=== PATIENT | female | born 1945 | race Caucasian/White ===

== ENCOUNTER 2016-06-06 11:42 | Outpatient (CLI) | payer MEDICARE, OTHER ==
[2016-06-06] MEDS ORDERED: IOPAMIDOL-300 50 ML VIAL PO ONE (14:04)
[2016-06-06] MEDS ORDERED: IOPAMIDOL-300 100 ML VIAL IVP ONE ×2 (14:04)
== END 2016-06-06 11:43 | disposition home or self-care (01) ==
DX: K57.32 Diverticulitis of large intestine without perforation or abscess without bleeding (principal)
CPT/HCPCS: 36415; 74177; 80053; 83690; 85025; Q9967

== ENCOUNTER 2016-06-18 08:00 | Outpatient (CLI) | payer MEDICARE, OTHER | END 2016-06-18 08:01 | disposition home or self-care (01) | DX: R19.7 Diarrhea, unspecified (principal) ==

== ENCOUNTER 2016-12-19 09:03 | Day surgery (SDC) | payer MEDICARE, OTHER ==
[2016-12-19] MEDS ORDERED: LACTATED RINGERS 1,000 ML IV ONE (09:09)
[2016-12-19] MEDS ORDERED: fentaNYL 100 MCG/2 ML VIAL IVP ONE (10:28)
[2016-12-19] MEDS ORDERED: MIDAZOLAM 2 MG/2 ML VIAL IVP ONE (10:28)
[2016-12-19 11:29] VITALS: BP 117/40
--- NOTE | 2016-12-19 11:29 | PROCEDURE REPORT ---
DATE OF PROCEDURE: 12/19/2016 00:00:00 PROCEDURE PERFORMED: Colonoscopy with biopsy. ENDOSCOPIST: Colby Price MD. PRIMARY CARE PROVIDER: Meg Leigh MD. INDICATION: History of diverticulitis with abnormal CT scan and the need for followup screening colon oscopy. PREMEDICATIONS: Fentanyl 150 mcg, Versed 7 mg IV titration. OPERATIVE PROCEDURE: After informed consent was obtained, the patient was placed in the left lateral decubitus position. The video colonoscope was placed in the rectum and slowly advanced. This was only able to pass to the sigmoid colon where there was an extremely tight turn in the midst of an adhesed sigmoid. After several attempts to try to pass this area, it was felt better to substitute the pedia tric scope. Eventually this was able to be passed through this area into the cecum. On slow withdrawa l, mucosa was carefully examined. The scope was removed. The patient tolerated the procedure well. BLOOD LOSS: None. COMPLICATIONS: None. FINDINGS 1. Severe sigmoid diverticulosis. One area in the midst of this at 25 cm had polypoid hyperplastic an d hypervascular 8 mm polyp that was prolapsing in and out of a diverticular orifice. This was biopsie d. 2. Otherwise negative colonoscopy to cecum. The patient will need followup colonoscopy in 5-10 years. We will be in touch about biopsy results. S he is doing well at this time and asymptomatic, so do nothing further. 11:9:00 JOB #: [id number] EXT JOB #:[id number]
== END 2016-12-19 09:04 | disposition home or self-care (01) ==
LOC: SDS 09:03
PROVIDERS: ATTEND Internal Medicine Gastroenterology
PROC: 0DBN8ZX Excision of Sigmoid Colon, Via Natural or Artificial Opening Endoscopic, Diagnostic (ICD-10-PCS; principal; 2016-12-19 10:00)
DX: K57.30 Diverticulosis of large intestine without perforation or abscess without bleeding (principal); K63.5 Polyp of colon; I10 Essential (primary) hypertension; E11.9 Type 2 diabetes mellitus without complications; Z79.84 Long term (current) use of oral hypoglycemic drugs; E78.00 Pure hypercholesterolemia, unspecified; Z79.82 Long term (current) use of aspirin
CPT/HCPCS: 45380; 88305; J7120

== ENCOUNTER 2017-03-11 10:57 | Outpatient (CLI) | payer MEDICARE, OTHER ==
[2017-03-11 19:25] LABS: BILIRUBIN,URINE NEGATIVE (NEGATIVE)
[2017-03-11 19:30] LABS: BASOPHILS # (AUTO) 0.1 10^3/uL (0.0-0.1); EOSINOPHILS # (AUTO) 0.9 10^3/uL (0.0-0.7); EOSINOPHILS % (AUTO) 9.1 %; HGB - HEMOGLOBIN 12.3 g/dL (12.0-16.0); LYMPHOCYTES # (AUTO) 2.3 10^3/uL (1.5-3.5); LYMPHOCYTES % (AUTO) 23.4 %; MEAN CORPUSCULAR HEMOGLOBIN 30.1 pg (27.0-31.0); MEAN CORPUSCULAR HGB CONC 32.5 g/dL (32.0-36.0); MEAN CORPUSCULAR VOLUME 92.7 fL (81.0-99.0); MEAN PLATELET VOLUME 8.4 fL (7.9-10.8); MONOCYTES # (AUTO) 0.7 10^3/uL (0.0-1.0); MONOCYTES % (AUTO) 6.8 %; NEUTROPHILS % (AUTO) 59.7 %; RED CELL DISTRIBUTION WIDTH 14.9 % (12.0-15.0)
[2017-03-11 19:42] LABS: ALBUMIN/GLOBULIN RATIO 1.3 (1.0-2.2); BILIRUBIN,TOTAL 0.9 mg/dL (0.2-1.0); BUN - BLOOD UREA NITROGEN 28 mg/dL (6-20); CALCIUM 9.1 mg/dL (8.5-10.3); CARBON DIOXIDE - CO2 27 mmol/L (21-32); CHLORIDE 103 mmol/L (101-111); CHOLESTEROL 271 mg/dL; GFR - MDRD 55 (>89); GLUCOSE 106 mg/dL (70-100); HDL CHOLESTEROL 68 mg/dL; LDL/HDL RATIO 2.5 (<4.4); POTASSIUM 5.1 mmol/L (3.5-5.0); SODIUM 138 mmol/L (135-145); TOTAL PROTEIN 7.3 g/dL (6.7-8.2); TRIGLYCERIDES 150 mg/dL; VLDL CHOLESTEROL 30 mg/dL
[2017-03-11 19:44] LABS: HEMOGLOBIN A1C 0.49 g/dL
[2017-03-11 19:48] LABS: WBC,URINE >25 /HPF (0-5)
== END 2017-03-11 10:58 | disposition home or self-care (01) ==
LOC: LAB.WCP 10:57
PROVIDERS: ATTEND Family Medicine
DX: E11.9 Type 2 diabetes mellitus without complications (principal); I10 Essential (primary) hypertension
CPT/HCPCS: 36415; 80053; 80061; 81001; 82043; 83036; 84443; 85025

== ENCOUNTER 2018-02-26 08:00 | Outpatient (CLI) | payer MEDICARE, OTHER ==
[2018-02-26 12:58] LABS: BASOPHILS # (AUTO) 0.1 10^3/uL (0.0-0.1); BASOPHILS % (AUTO) 0.9 %; EOSINOPHILS # (AUTO) 0.6 10^3/uL (0.0-0.7); EOSINOPHILS % (AUTO) 6.9 %; HGB - HEMOGLOBIN 12.6 g/dL (12.0-16.0); LYMPHOCYTES # (AUTO) 1.7 10^3/uL (1.5-3.5); LYMPHOCYTES % (AUTO) 18.7 %; MEAN CORPUSCULAR HEMOGLOBIN 31.1 pg (27.0-31.0); MEAN CORPUSCULAR HGB CONC 33.4 g/dL (32.0-36.0); MEAN CORPUSCULAR VOLUME 93.2 fL (81.0-99.0); MEAN PLATELET VOLUME 8.7 fL (7.9-10.8); MONOCYTES # (AUTO) 0.6 10^3/uL (0.0-1.0); MONOCYTES % (AUTO) 6.5 %; NEUTROPHILS # (AUTO) 6.1 10^3/uL (1.5-6.6); PLT - PLATELET COUNT 276 10^3/uL (130-450); RED BLOOD COUNT 4.06 10^6/uL (4.20-5.40); RED CELL DISTRIBUTION WIDTH 13.9 % (12.0-15.0)
[2018-02-26 13:10] LABS: HB2 TOTAL 13.5 g/dL; HEMOGLOBIN A1C 0.49 g/dL; HEMOGLOBIN A1C % 5.5 % (4.6-6.2)
[2018-02-26 13:28] LABS: ALBUMIN 4.3 g/dL (3.2-5.5); ALBUMIN/GLOBULIN RATIO 1.4 (1.0-2.2); ALKALINE PHOSPHATASE 94 IU/L (42-121); ALT ALANINE AMINOTRANSFERASE 15 IU/L (10-60); AST ASPARTATE AMINOTRANSFERASE 21 IU/L (10-42); BILIRUBIN,TOTAL 1.3 mg/dL (0.2-1.0); BUN - BLOOD UREA NITROGEN 30 mg/dL (6-20); CALCIUM 9.3 mg/dL (8.5-10.3); CARBON DIOXIDE - CO2 25 mmol/L (21-32); CHLORIDE 101 mmol/L (101-111); CHOL/HDL RATIO 4.3 (<4.4); CHOLESTEROL 277 mg/dL; CREATININE 1.3 mg/dL (0.4-1.0); GFR - MDRD 40 (>89); GLUCOSE 104 mg/dL (70-100); HDL CHOLESTEROL 65 mg/dL; LDL CHOLESTEROL,CALCULATED 182 mg/dL; LDL/HDL RATIO 2.8 (<4.4); SODIUM 139 mmol/L (135-145); TOTAL PROTEIN 7.3 g/dL (6.7-8.2); VLDL CHOLESTEROL 30 mg/dL
== END 2018-02-26 23:59 | disposition home or self-care (01) ==
LOC: LAB.WCP 08:00
PROVIDERS: ATTEND Nurse Practitioner
DX: E11.9 Type 2 diabetes mellitus without complications (principal); I10 Essential (primary) hypertension; E78.5 Hyperlipidemia, unspecified
CPT/HCPCS: 36415; 80053; 80061; 83036; 83721; 85025

== ENCOUNTER 2018-03-24 08:00 | Outpatient (CLI) | payer MEDICARE, OTHER ==
[2018-03-24 19:35] LABS: ALBUMIN 4.2 g/dL (3.2-5.5); ALBUMIN/GLOBULIN RATIO 1.6 (1.0-2.2); CALCIUM 9.1 mg/dL (8.5-10.3); CREATININE 1.1 mg/dL (0.4-1.0); TOTAL PROTEIN 6.9 g/dL (6.7-8.2)
== END 2018-03-24 23:59 | disposition home or self-care (01) ==
LOC: LAB.WCP 08:00
PROVIDERS: ATTEND Nurse Practitioner
DX: I10 Essential (primary) hypertension (principal)
CPT/HCPCS: 36415; 80053

== ENCOUNTER 2018-04-30 08:00 | Outpatient (CLI) | payer MEDICARE, OTHER ==
[2018-04-30 19:02] LABS: ALBUMIN 4.2 g/dL (3.2-5.5); ALBUMIN/GLOBULIN RATIO 1.4 (1.0-2.2); CALCIUM 9.3 mg/dL (8.5-10.3); CREATININE 0.9 mg/dL (0.4-1.0); MAGNESIUM 1.8 mg/dL (1.7-2.8); TOTAL PROTEIN 7.1 g/dL (6.7-8.2)
== END 2018-04-30 23:59 | disposition home or self-care (01) ==
LOC: LAB.WCP 08:00
PROVIDERS: ATTEND Nurse Practitioner
DX: I10 Essential (primary) hypertension (principal); R68.89 Other general symptoms and signs
CPT/HCPCS: 36415; 80053; 83735; 84443

== ENCOUNTER 2018-09-02 14:22 | Outpatient (CLI) | payer MEDICARE, OTHER ==
[2018-09-02 14:46] LABS: HGB - HEMOGLOBIN 12.4 g/dL (12.0-16.0); MEAN CORPUSCULAR HEMOGLOBIN 30.8 pg (27.0-31.0); MEAN CORPUSCULAR HGB CONC 33.1 g/dL (32.0-36.0); RED BLOOD COUNT 4.02 10^6/uL (4.20-5.40); RED CELL DISTRIBUTION WIDTH 13.4 % (12.0-15.0); WHITE BLOOD COUNT 6.6 x10^3/uL (4.8-10.8)
== END 2018-09-02 14:23 | disposition home or self-care (01) ==
LOC: LAB 14:22
PROVIDERS: ATTEND Nurse Practitioner
DX: R25.2 Cramp and spasm (principal); I10 Essential (primary) hypertension
CPT/HCPCS: 36415; 80051; 85027

== ENCOUNTER 2019-01-06 13:45 | Outpatient (CLI) | payer MEDICARE, OTHER ==
[2019-01-06] MEDS ORDERED: IOVERSOL 320 50 ML VIAL ONE (14:07)
[2019-01-06] MEDS ORDERED: IOVERSOL 320 100 ML VIAL IVP ONE ×2 (14:07→15:19)
[2019-01-06 14:23] LABS: ALBUMIN 4.1 g/dL (3.2-5.5); ALBUMIN/GLOBULIN RATIO 1.5 (1.0-2.2); BILIRUBIN,TOTAL 0.7 mg/dL (0.2-1.0); CALCIUM 9.5 mg/dL (8.5-10.3); CREATININE 1.4 mg/dL (0.4-1.0); TOTAL PROTEIN 6.9 g/dL (6.7-8.2)
[2019-01-06] MEDS ORDERED: IOVERSOL 320 50 ML VIAL PO ONE (15:19)
[2019-01-06] MEDS: BARIUM SULFATE 450 ML BOTTLE PO ONE ×3 (15:21→15:26)
--- NOTE | 2019-01-06 15:58 | CT Report ---
Reason: CHANGE IN BOWEL HABITS, DIVERTICULOSIS Procedure Date: 01/06/2019 Accession Number: [id number] / [id number] Procedure: CT - Abdomen/Pelvis W CPT Code: FULL RESULT: EXAM: CT ABDOMEN AND PELVIS EXAM DATE: 01/06/2019 03:13 PM. CLINICAL HISTORY: Change in bowel habits, diverticulosis. COMPARISONS: ABDOMEN/PELVIS W/ 06/06/2016 1:48 PM. TECHNIQUE: Routine helical CT imaging was performed through the abdomen and pelvis. IV contrast: OPTI 320 100ML. Enteric contrast: Yes. Reconstructions: Coronal and sagittal. In accordance with CT protocol optimization, one or more of the following dose reduction techniques were utilized for this exam: automated exposure control, adjustment of mA and/or KV based on patient size, or use of iterative reconstructive technique. FINDINGS: Lung Bases: Unremarkable. Liver: Normal. No masses. Gallbladder/Bile Ducts: Cholelithiasis. Spleen: Normal. Pancreas: Normal. Adrenal Glands: Normal. Kidneys: Normal. No masses or hydronephrosis. Peritoneal Cavity/Bowel: There is mild fat stranding surrounding the distal intrapelvic sigmoid colon suggestive of mild diverticulitis without associated fluid collection or macroperforation. There is no free fluid, free air or bowel obstruction. A nearby hypodense 2.5 x 2.8 cm mass near the left iliac vessels is felt to likely represent the left ovary, seen in 2017 and at that time intimately associated with focal diverticulitis. Pelvic Organs: Limited evaluation due to streak artifact from the right hip prosthesis. The patient is status post hysterectomy. Vasculature: No aneurysms or other significant abnormality. Bones: 1.3 cm of anterolisthesis of L4 on L5, similar to 2017. Other: None. IMPRESSION: Suspect uncomplicated sigmoid diverticulitis. Stable hypodense left pelvic mass near the region of diverticulitis, while the imaging appearance favors a left ovary potentially with cyst, chronic fluid collection associated with previous bouts of diverticulitis would be difficult to exclude. Recommendation: Correlation to surgical history to determine if the patient has a left ovary; if thereafter further imaging clarification is needed, a transvaginal and transabdominal pelvic ultrasound could be considered. RADIA
== END 2019-01-06 13:46 | disposition home or self-care (01) ==
LOC: DI 13:45
PROVIDERS: ATTEND Nurse Practitioner
DX: R19.00 Intra-abdominal and pelvic swelling, mass and lump, unspecified site (principal); R19.4 Change in bowel habit; K57.90 Diverticulosis of intestine, part unspecified, without perforation or abscess without bleeding
CPT/HCPCS: 36415; 74177; 80053; A9270; Q9967

== ENCOUNTER 2019-05-30 10:39 | Outpatient (CLI) | payer MEDICARE, OTHER ==
[2019-05-30 11:06] LABS: BASOPHILS # (AUTO) 0.1 10^3/uL (0.0-0.1); BASOPHILS % (AUTO) 0.8 %; EOSINOPHILS # (AUTO) 0.6 10^3/uL (0.0-0.7); EOSINOPHILS % (AUTO) 7.9 %; HGB - HEMOGLOBIN 11.9 g/dL (12.0-16.0); LYMPHOCYTES # (AUTO) 1.3 10^3/uL (1.5-3.5); LYMPHOCYTES % (AUTO) 18.2 %; MEAN CORPUSCULAR HGB CONC 31.8 g/dL (32.0-36.0); MEAN CORPUSCULAR VOLUME 97.4 fL (81.0-99.0); MEAN PLATELET VOLUME 9.4 fL (7.9-10.8); MONOCYTES # (AUTO) 0.5 10^3/uL (0.0-1.0); MONOCYTES % (AUTO) 7.2 %; NEUTROPHILS # (AUTO) 4.7 10^3/uL (1.5-6.6); NEUTROPHILS % (AUTO) 65.6 %; PLT - PLATELET COUNT 281 10^3/uL (130-450); RED BLOOD COUNT 3.84 10^6/uL (4.20-5.40); RED CELL DISTRIBUTION WIDTH 13.3 % (12.0-15.0); WHITE BLOOD COUNT 7.2 x10^3/uL (4.8-10.8)
[2019-05-30 11:34] LABS: CREATININE,URINE 209.2 mg/dL; MICROALBUM/CREATININE RATIO,UR 6.7 ug/mg (<30.0); MICROALBUMIN,URINE 1.4 mg/dL (0-300.0)
[2019-05-30 11:38] LABS: HB2 TOTAL 12.2 g/dL; HEMOGLOBIN A1C 0.41 g/dL; HEMOGLOBIN A1C % 5.2 % (4.6-6.2)
[2019-05-30 11:44] LABS: ALBUMIN 4.4 g/dL (3.2-5.5); ALBUMIN/GLOBULIN RATIO 1.6 (1.0-2.2); ALKALINE PHOSPHATASE 56 IU/L (42-121); ALT ALANINE AMINOTRANSFERASE 15 IU/L (10-60); AST ASPARTATE AMINOTRANSFERASE 22 IU/L (10-42); BILIRUBIN,TOTAL 1.3 mg/dL (0.2-1.0); BUN - BLOOD UREA NITROGEN 28 mg/dL (6-20); CARBON DIOXIDE - CO2 24 mmol/L (21-32); CHLORIDE 104 mmol/L (101-111); CHOL/HDL RATIO 3.6 (<4.4); CHOLESTEROL 232 mg/dL; CREATININE 1.3 mg/dL (0.4-1.0); GFR - MDRD 40 (>89); GLUCOSE 101 mg/dL (70-100); HDL CHOLESTEROL 64 mg/dL; LDL CHOLESTEROL,CALCULATED 144 mg/dL; LDL/HDL RATIO 2.3 (<4.4); SODIUM 139 mmol/L (135-145); TOTAL PROTEIN 7.2 g/dL (6.7-8.2); VLDL CHOLESTEROL 24 mg/dL
== END 2019-05-30 10:40 | disposition home or self-care (01) ==
LOC: LAB 10:39
PROVIDERS: ATTEND Nurse Practitioner
DX: E78.5 Hyperlipidemia, unspecified (principal); E11.9 Type 2 diabetes mellitus without complications; I10 Essential (primary) hypertension; E55.9 Vitamin D deficiency, unspecified
CPT/HCPCS: 36415; 80053; 80061; 82043; 82306; 82570; 83036; 83721; 84443; 85025

== ENCOUNTER 2019-06-19 15:07 | Outpatient (CLI) | payer MEDICARE, OTHER ==
--- NOTE | 2019-06-20 22:25 | Ultrasound Report ---
Reason: MUSCLE CRAMPING Procedure Date: 06/19/2019 Accession Number: [id number] / [id number] Procedure: US - Duplex Lwr Ext Arterial Bilat CPT Code: Final Report FULL RESULT: EXAM: Bilateral Lower Extremity Arterial Doppler Ultrasound EXAM DATE: 06/19/2019 04:34 PM. CLINICAL HISTORY: Muscle cramping. COMPARISON: None. TECHNIQUE: Real-time sonographic vascular imaging was performed by the timber rider, utilizing color-flow, Doppler flow, and spectral analysis. Multiple termite control service representative static images were saved for review. FINDINGS: Biphasic waveforms throughout, without any significant change in velocities or waveforms that would suggest hemodynamically significant stenoses. Right Lower Extremity: AUTOMOTIVE WARRANTY ADMINISTRATOR: PSV 90 cm/sec, biphasic. PSFA: PSV 17 cm/sec, biphasic. MSFA: PSV 97 cm/sec, biphasic. DSFA: PSV 100 cm/sec, biphasic. PFA: PSV 91 cm/sec, biphasic. POP: PSV 86 cm/sec, biphasic. MARIAJOSE: PSV 65 cm/sec, biphasic. PAINT LINE OPERATOR: PSV 97 cm/sec, biphasic. YINA: PSV 54 cm/sec, biphasic. DPA: PSV 53 cm/sec, biphasic. Left Lower Extremity: AUTOMOTIVE WARRANTY ADMINISTRATOR: PSV 113 cm/sec, biphasic. PSFA: PSV 118 cm/sec, biphasic. MSFA: PSV 104 cm/sec, biphasic. DSFA: PSV 95 cm/sec, biphasic. PFA: PSV 87 cm/sec, biphasic. POP: PSV 76 cm/sec, biphasic. MARIAJOSE: PSV 82 cm/sec, biphasic. PAINT LINE OPERATOR: PSV 116 cm/sec, biphasic. YINA: PSV 69 cm/sec, biphasic. DPA: PSV 70 cm/sec, biphasic. IMPRESSION: No evidence of hemodynamically significant stenoses or occlusions in either leg. RADIA
== END 2019-06-19 15:08 | disposition home or self-care (01) ==
LOC: DI 15:07
PROVIDERS: ATTEND Nurse Practitioner
DX: R25.2 Cramp and spasm (principal)
CPT/HCPCS: 93925

== ENCOUNTER 2020-06-28 08:00 | Outpatient (CLI) | payer MEDICARE, OTHER ==
[2020-06-28 18:20] LABS: BASOPHILS # (AUTO) 0.1 10^3/uL (0.0-0.1); BASOPHILS % (AUTO) 0.9 %; EOSINOPHILS # (AUTO) 0.5 10^3/uL (0.0-0.7); EOSINOPHILS % (AUTO) 6.6 %; HCT - HEMATOCRIT 38.3 % (37.0-47.0); HGB - HEMOGLOBIN 11.9 g/dL (12.0-16.0); LYMPHOCYTES # (AUTO) 1.6 10^3/uL (1.5-3.5); MEAN CORPUSCULAR HEMOGLOBIN 30.7 pg (27.0-31.0); MEAN CORPUSCULAR HGB CONC 31.1 g/dL (32.0-36.0); MEAN CORPUSCULAR VOLUME 98.7 fL (81.0-99.0); MEAN PLATELET VOLUME 10.6 fL (7.9-10.8); MONOCYTES # (AUTO) 0.6 10^3/uL (0.0-1.0); MONOCYTES % (AUTO) 7.3 %; NEUTROPHILS # (AUTO) 4.9 10^3/uL (1.5-6.6); NEUTROPHILS % (AUTO) 63.9 %; PLT - PLATELET COUNT 308 10^3/uL (130-450); RED BLOOD COUNT 3.88 10^6/uL (4.20-5.40); RED CELL DISTRIBUTION WIDTH 13.7 % (12.0-15.0); WHITE BLOOD COUNT 7.6 x10^3/uL (4.8-10.8)
[2020-06-28 18:36] LABS: ALBUMIN 4.2 g/dL (3.2-5.5); ALBUMIN/GLOBULIN RATIO 1.4 (1.0-2.2); ALKALINE PHOSPHATASE 76 IU/L (42-121); ALT ALANINE AMINOTRANSFERASE 11 IU/L (10-60); AST ASPARTATE AMINOTRANSFERASE 17 IU/L (10-42); BILIRUBIN,TOTAL 0.9 mg/dL (0.2-1.0); BUN - BLOOD UREA NITROGEN 34 mg/dL (6-20); CALCIUM 9.5 mg/dL (8.5-10.3); CARBON DIOXIDE - CO2 24 mmol/L (21-32); CHLORIDE 104 mmol/L (101-111); CHOL/HDL RATIO 3.7 (<4.4); CHOLESTEROL 230 mg/dL; CREATININE 1.4 mg/dL (0.4-1.0); GFR - MDRD 37 (>89); GLUCOSE 102 mg/dL (70-100); HDL CHOLESTEROL 62 mg/dL; LDL CHOLESTEROL,CALCULATED 147 mg/dL; LDL/HDL RATIO 2.4 (<4.4); SODIUM 136 mmol/L (135-145); TOTAL PROTEIN 7.1 g/dL (6.7-8.2); TRIGLYCERIDES 107 mg/dL; VLDL CHOLESTEROL 21 mg/dL
[2020-06-28 18:45] LABS: CREATININE,URINE 79.6 mg/dL; MICROALBUM/CREATININE RATIO,UR 7.5 ug/mg (<30.0); MICROALBUMIN,URINE 0.6 mg/dL (0-300.0)
[2020-06-28 18:47] LABS: THYROID STIMULATING HORMONE 1.1 uIU/mL (0.34-5.60)
[2020-06-28 20:56] LABS: ESTIMATED AVERAGE GLUCOSE 111 mg/dL (70-100); HEMOGLOBIN A1c% 5.5 % (4.27-6.07)
== END 2020-06-28 23:59 | disposition home or self-care (01) ==
LOC: LAB.WCP 08:00
PROVIDERS: ATTEND Nurse Practitioner
DX: E11.9 Type 2 diabetes mellitus without complications (principal); N28.9 Disorder of kidney and ureter, unspecified; E78.5 Hyperlipidemia, unspecified; I10 Essential (primary) hypertension
CPT/HCPCS: 36415; 80053; 80061; 82043; 82570; 83036; 83721; 84443; 85025

== ENCOUNTER 2020-07-05 21:14 | Emergency (ER) | payer MEDICARE, OTHER ==
--- NOTE | 2020-07-05 21:34 | ED Physician Documentation ---
History of Present Illness - Stated complaint Stated Complaint: F/O IN RT EAR - Chief complaint Chief Complaint: Heent - Additonal information Additional information: 75-year-old female presents the emergency department for foreign body removal from the right ear. She was removing her hearing aid when she noted that the distal tip of the ear piece was missing and she felt fullness and pressure in the ear canal. No history of similar in the past denies pain or ear drainage. Patient does have a history of hypertension. She takes daily and nightly medications however has not taken them this evening. Noted to have a markedly elevated blood pressure of 222/112 however she denies chest pain or shortness of breath and does not desire further evaluation of her blood pressure Review of Systems Constitutional: reports: Reviewed and negative Eyes: reports: Reviewed and negative Ears: reports: Foreign body Nose: reports: Reviewed and negative Cardiac: reports: Reviewed and negative Respiratory: reports: Reviewed and negative GI: reports: Abdominal Pain : reports: Reviewed and negative Skin: reports: Reviewed and negative Musculoskeletal: reports: Reviewed and negative PD PAST MEDICAL HISTORY - Past Medical History Cardiovascular: Hypertension, High cholesterol Respiratory: Pneumonia Endocrine/Autoimmune: Type 2 diabetes GI: Diverticulitis : Kidney stones HEENT: None Psych: None Musculoskeletal: Osteoarthritis, Chronic back pain, Other Derm: None - Past Surgical History Past Surgical History: Yes General: Colonoscopy Ortho: Hip replacement, Knee replacement, 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 HEENT: Tonsil/Adenoidectomy - Present Medications Home Medications: Ambulatory Orders Medication Instructions Recorded Confirmed Ascorbic Acid [Vitamin C] 1,000 mg PO BID 10/31/14 12/18/16 Calcium Carbonate [Calcium] 1 tab PO BID 10/31/14 12/18/16 Gabapentin 1 cap PO DAILY 10/31/14 08/31/15 Glipizide [Glipizide Xl] 5 mg PO DAILY 10/31/14 12/18/16 Iron,Carbonyl [Iron Chews] 1 tab PO BID 10/31/14 12/18/16 Magnesium Oxide 400 mg PO DAILY 10/31/14 12/18/16 Metformin HCl 1 tab PO BID 10/31/14 12/18/16 Metoprolol Succinate [Toprol Xl] 1 tab PO BID 10/31/14 12/18/16 Bisoprolol Fumarate/Hctz [Ziac 1 each PO BIDAC 08/31/15 12/18/16 10-6.25 mg Tablet] Eldridge-3S/Dha/Epa/Fish Oil [Fish 1 each PO DAILY 08/31/15 12/18/16 Oil 1,200 mg Softgel] Bisoprolol Fumarate/Hctz [Ziac 1 tab PO BID 12/19/16 12/19/16 10-6.25 mg Tablet] Gabapentin 300 mg PO DAILY 12/19/16 12/19/16 - Allergies Allergies/Adverse Reactions: Allergies Allergy/AdvReac Type Severity Reaction Status Date / Time CHANDANA Inhibitors AdvReac Intermediate Cramps Verified 10/31/14 13:53 codeine AdvReac Intermediate Cramps Verified 10/31/14 13:53 - Social History Does the pt smoke?: No Smoking Status: Never smoker Does the pt drink ETOH?: No Does the pt have substance abuse?: No - Immunizations Immunizations are current?: Yes - POLST Patient has POLST: No PD ED PE EXPANDED - HEENT HEENT: Other (Firm circular rubber flange seen in the distal EAC. This was easily removed with alligator forceps. Reevaluation there is no erythema the ear canal tenderness on exam or erythema bulge or effusion of posterior to the TM.) Results - Vitals Vitals: Vital Signs - 24 hr 07/05/20 21:27 Temperature 36.6 C Heart Rate 73 Respiratory 18 Rate Blood Pressure 222/121 H O2 Saturation 100 Oxygen O2 Source Room air Procedures - FB removal FB location: Ear Removal method: Foreceps FB removal aftercare: No complications, Patient tolerated well, Removed successfully PD MEDICAL DECISION MAKING - ED course Complexity details: re-evaluated patient, d/w patient ED course: 75 year old female presents to the ED for evaluation of a FB in the distal right EAC. This was a piece to her hearing aid. This was sucessfully removed using alligator forceps with no residual infection noted. Emergent return precautions discussed. noted elevated BP here in the ED. Pt has not taken her night time HTN meds. She denies CP, SOB and does not want further evaluation of her BP here tonight. Departure - Departure Disposition: 01 Home, Self Care Clinical Impression: Foreign body in right ear, initial encounter Condition: Stable Record reviewed to determine appropriate education?: Yes Comments: Hilda you are seen today for a foreign body in the right ear. This was the tip to your hearing aid. It was successfully removed there is no signs of infection. Please have your hearing aids reevaluated by the specialist to see if they should be readjusted for fit or repair. Return to the emergency department if you have ear swelling, pain, milky drainage or discharge from the ear canal. Your BP is very elevated tonight here in the ED, but you have not taken your night time dose of medication. Please take your meds when you go home. Return to the ED if you develop chest pain or shortness of breath.
[2020-07-05 21:42] VITALS: BP 187/78
== END 2020-07-05 21:46 | disposition home or self-care (01) ==
LOC: ED 21:14
DX: T16.1XXA Foreign body in right ear, initial encounter (principal); X58.XXXA Exposure to other specified factors, initial encounter; I10 Essential (primary) hypertension; E11.9 Type 2 diabetes mellitus without complications; Z79.84 Long term (current) use of oral hypoglycemic drugs
CPT/HCPCS: 69200; 99281

== ENCOUNTER 2020-08-05 10:53 | Outpatient (CLI) | payer MEDICARE, OTHER ==
--- NOTE | 2020-08-05 12:23 | DEXA Report ---
PROCEDURE: Dexa Spine and/or Hip INDICATIONS: POST MENOPAUSAL TECHNIQUE: Dual energy x-ray absorptiometry (DXA) was performed on a [employer] System. Regions measur ed are the AP Spine, femoral neck, and if needed forearm. COMPARISON: 03/05/2016. FINDINGS: Lumbar Spine: Bone Mineral Density 1.349 g/cm/cm,T score 1.5, there is interval 6.3% decrease in total lumbar sp ine bone mineral density compared to 2016 study. Left Hip: Bone Mineral Density 0.947 g/cm/cm,T score -0.5. There is interval 5.5% decrease in total left hip b one mineral density. Left Femoral Neck: Bone Mineral Density 1.000 g/cm/cm, T score -0.3. (T score greater or equal to -1.0: NORMAL) (T score from -1.1 to -2.4: OSTEOPENIA) (T score less than or equal to -2.5 to: OSTEOPOROSIS) Impression: Normal bone mineral density. Patients with diagnosis of osteoporosis or osteopenia should have regular bone mineral density assess ment. For those eligible for Medicare, routine testing is allowed once every 2 years. Testing frequ ency can be increased for patients who have rapidly progressing disease or for those who are receivin g medical therapy to restore bone mass. Reviewed by: Philip Delgado MD on 08/05/2020 12:22 PM PDT Approved by: Philip Delgado MD on 08/05/2020 12:22 PM PDT Station ID: [id number]
== END 2020-08-05 10:54 | disposition home or self-care (01) ==
LOC: DI 10:53
PROVIDERS: ATTEND Nurse Practitioner
DX: Z78.0 Asymptomatic menopausal state (principal)

== ENCOUNTER 2020-12-08 10:33 | Outpatient (CLI) | payer MEDICARE, OTHER ==
[2020-12-08 11:03] LABS: CALCIUM 9.5 mg/dL (8.5-10.3); CREATININE 1.4 mg/dL (0.4-1.0); POTASSIUM 5.5 mmol/L (3.5-5.0)
== END 2020-12-08 10:34 | disposition home or self-care (01) ==
LOC: LAB 10:33
PROVIDERS: ATTEND Internal Medicine Nephrology
DX: N18.32 Chronic kidney disease, stage 3b (principal)
CPT/HCPCS: 36415; 80048

== ENCOUNTER 2021-01-01 10:13 | Outpatient (CLI) | payer MEDICARE, OTHER ==
[2021-01-01 10:39] LABS: CALCIUM 9.4 mg/dL (8.5-10.3); CREATININE 1.6 mg/dL (0.4-1.0); POTASSIUM 5.3 mmol/L (3.5-5.0)
== END 2021-01-01 10:14 | disposition home or self-care (01) ==
LOC: LAB 10:13
PROVIDERS: ATTEND Internal Medicine Nephrology
DX: E87.5 Hyperkalemia (principal)
CPT/HCPCS: 36415; 80048

== ENCOUNTER 2021-02-11 14:25 | Outpatient (CLI) | payer MEDICARE, OTHER ==
[2021-02-11 15:21] LABS: CALCIUM 9.2 mg/dL (8.5-10.3); CREATININE 1.3 mg/dL (0.4-1.0); POTASSIUM 4.4 mmol/L (3.5-5.0)
== END 2021-02-11 14:26 | disposition home or self-care (01) ==
LOC: LAB 14:25
PROVIDERS: ATTEND Internal Medicine Nephrology
DX: N18.32 Chronic kidney disease, stage 3b (principal)
CPT/HCPCS: 36415; 80048

== ENCOUNTER 2021-03-29 10:39 | Outpatient (CLI) | payer MEDICARE, OTHER ==
[2021-03-29 18:08] LABS: CREATININE,URINE 156.4 mg/dL; MICROALBUMIN,URINE 1.4 mg/dL (0-300.0)
[2021-03-29 18:22] LABS: ALBUMIN/GLOBULIN RATIO 1.5 (1.0-2.2); ALKALINE PHOSPHATASE 84 IU/L (42-121); ALT ALANINE AMINOTRANSFERASE 11 IU/L (10-60); AST ASPARTATE AMINOTRANSFERASE 18 IU/L (10-42); BILIRUBIN,TOTAL 0.8 mg/dL (0.2-1.0); BUN - BLOOD UREA NITROGEN 43 mg/dL (6-20); CALCIUM 9.5 mg/dL (8.5-10.3); CARBON DIOXIDE - CO2 23 mmol/L (21-32); CHLORIDE 106 mmol/L (101-111); CHOL/HDL RATIO 4.4 (<4.4); CHOLESTEROL 278 mg/dL; CREATININE 1.6 mg/dL (0.4-1.0); GFR - MDRD 31 (>89); GLUCOSE 100 mg/dL (70-100); HDL CHOLESTEROL 63 mg/dL; LDL CHOLESTEROL,CALCULATED 195 mg/dL; LDL/HDL RATIO 3.1 (<4.4); POTASSIUM 4.6 mmol/L (3.5-5.0); SODIUM 140 mmol/L (135-145); TOTAL PROTEIN 6.7 g/dL (6.7-8.2); TRIGLYCERIDES 102 mg/dL; VLDL CHOLESTEROL 20 mg/dL
[2021-03-29 18:25] LABS: THYROID STIMULATING HORMONE 1.66 uIU/mL (0.34-5.60)
[2021-03-29 20:46] LABS: ESTIMATED AVERAGE GLUCOSE 117 mg/dL (70-100); HEMOGLOBIN A1c% 5.7 % (4.27-6.07)
== END 2021-03-29 23:59 | disposition home or self-care (01) ==
LOC: LAB.WCP 10:39
PROVIDERS: ATTEND Physician Assistant Medical
DX: E11.9 Type 2 diabetes mellitus without complications (principal)
CPT/HCPCS: 36415; 80053; 80061; 82043; 82570; 83036; 83721; 84443

== ENCOUNTER 2021-06-28 10:03 | Outpatient (CLI) | payer MEDICARE, OTHER ==
[2021-06-28 13:56] LABS: ALBUMIN 4.1 g/dL (3.2-5.5); ALBUMIN/GLOBULIN RATIO 1.4 (1.0-2.2); ALKALINE PHOSPHATASE 69 IU/L (42-121); ALT ALANINE AMINOTRANSFERASE 12 IU/L (10-60); AST ASPARTATE AMINOTRANSFERASE 17 IU/L (10-42); BUN - BLOOD UREA NITROGEN 44 mg/dL (6-20); CALCIUM 9.6 mg/dL (8.5-10.3); CARBON DIOXIDE - CO2 24 mmol/L (21-32); CHLORIDE 106 mmol/L (101-111); CHOL/HDL RATIO 3.7 (<4.4); CHOLESTEROL 217 mg/dL; CREATININE 1.7 mg/dL (0.4-1.0); GFR - MDRD 29 (>89); GLUCOSE 111 mg/dL (70-100); HDL CHOLESTEROL 59 mg/dL; LDL CHOLESTEROL,CALCULATED 135 mg/dL; LDL/HDL RATIO 2.3 (<4.4); POTASSIUM 4.9 mmol/L (3.5-5.0); SODIUM 143 mmol/L (135-145); TOTAL PROTEIN 7.1 g/dL (6.7-8.2); TRIGLYCERIDES 113 mg/dL; VLDL CHOLESTEROL 23 mg/dL
== END 2021-06-28 10:04 | disposition home or self-care (01) ==
LOC: LAB.F 10:03
PROVIDERS: ATTEND Physician Assistant Medical
DX: E78.5 Hyperlipidemia, unspecified (principal)
CPT/HCPCS: 36415; 80053; 80061; 83721

== ENCOUNTER 2022-01-04 11:49 | Outpatient (CLI) | payer MEDICARE, OTHER ==
[2022-01-04 18:21] LABS: ALBUMIN 4.1 g/dL (3.2-5.5); ALBUMIN/GLOBULIN RATIO 1.5 (1.0-2.2); ALKALINE PHOSPHATASE 67 IU/L (42-121); ALT ALANINE AMINOTRANSFERASE 13 IU/L (10-60); AST ASPARTATE AMINOTRANSFERASE 18 IU/L (10-42); BUN - BLOOD UREA NITROGEN 47 mg/dL (6-20); CALCIUM 9.7 mg/dL (8.5-10.3); CARBON DIOXIDE - CO2 25 mmol/L (21-32); CHLORIDE 107 mmol/L (101-111); CHOL/HDL RATIO 3.8 (<4.4); CHOLESTEROL 218 mg/dL; CREATININE 1.7 mg/dL (0.4-1.0); GFR - MDRD 29 (>89); GLUCOSE 96 mg/dL (70-100); HDL CHOLESTEROL 57 mg/dL; LDL CHOLESTEROL,CALCULATED 139 mg/dL; LDL/HDL RATIO 2.4 (<4.4); POTASSIUM 4.5 mmol/L (3.5-5.0); SODIUM 141 mmol/L (135-145); TOTAL PROTEIN 6.8 g/dL (6.7-8.2); TRIGLYCERIDES 108 mg/dL; VLDL CHOLESTEROL 22 mg/dL
[2022-01-04 20:52] LABS: ESTIMATED AVERAGE GLUCOSE 105 mg/dL (70-100); HEMOGLOBIN A1c% 5.3 % (4.27-6.07)
== END 2022-01-04 11:50 | disposition home or self-care (01) ==
LOC: LAB.N 11:49
PROVIDERS: ATTEND Physician Assistant Medical
DX: E11.9 Type 2 diabetes mellitus without complications (principal)
CPT/HCPCS: 36415; 80053; 80061; 83036; 83721

== ENCOUNTER 2022-03-04 08:38 | Emergency (ER) | payer MEDICARE, OTHER ==
[2022-03-04 08:58] VITALS: BP 149/48
--- NOTE | 2022-03-04 09:09 | ED Physician Documentation ---
PD HPI ABD PAIN - Stated complaint Stated Complaint: LT SIDE ABD PX - Chief complaint Chief Complaint: Abd Pain - History obtained from History obtained from: Patient - History of Present Illness Timing - onset: How many days ago (has had few days of increasing Left lower abd pain c/w diverticulitis. went to walk in yesterday and given Rx for augmentin. She got rx and was reading info sheet and noted warning to not take it if kidney failure, which she has. Walk In not open today so here to ER for info/advise.) Timing - duration: Days Timing - details: Gradual onset Quality: Cramping, Aching, Pain (she has not had notable increase in the abd pain since yesterday.) Associated symptoms: Nausea, Diarrhea. No: Fever, Vomiting, Constipation, Hematochezia Similar symptoms before: Diagnosis (diverticulitis) Recently seen: Clinic (Walk In clinic yesterday.) Review of Systems Constitutional: denies: Fever, Chills GI: denies: Nausea, Vomiting PD PAST MEDICAL HISTORY - Past Medical History Cardiovascular: Hypertension, High cholesterol Respiratory: Pneumonia Endocrine/Autoimmune: Type 2 diabetes GI: Diverticulitis : Kidney stones HEENT: None Psych: None Musculoskeletal: Osteoarthritis, Chronic back pain, Other Derm: None - Past Surgical History Past Surgical History: Yes General: Colonoscopy Ortho: Hip replacement, Knee replacement, 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 HEENT: Tonsil/Adenoidectomy - Present Medications Home Medications: Ambulatory Orders Medication Instructions Recorded Confirmed Metoprolol Succinate [Toprol Xl] 25 mg PO BID 10/31/14 03/04/22 Sharon-3S/Dha/Epa/Fish Oil [Fish 1 each PO DAILY 08/31/15 03/04/22 Oil 1,200 mg Softgel] Spironolactone [Aldactone] 25 mg PO DAILY 07/05/20 03/04/22 hydrALAZINE [Apresoline] 25 mg PO TID 07/05/20 03/04/22 Ezetimibe [Zetia] 10 mg PO QD 03/04/22 03/04/22 bisoproloL fumarate [Bisoprolol 10 mg PO BID 03/04/22 03/04/22 Fumarate] - Allergies Allergies/Adverse Reactions: Allergies Allergy/AdvReac Type Severity Reaction Status Date / Time CHANDANA Inhibitors AdvReac Intermediate Cramps Verified 03/04/22 08:51 codeine AdvReac Intermediate Cramps Verified 03/04/22 08:51 - Social History Does the pt smoke?: No Smoking Status: Never smoker Does the pt drink ETOH?: No Does the pt have substance abuse?: No - Immunizations Immunizations are current?: Yes - POLST Patient has POLST: No PD ED PE NORMAL - Vitals Vital signs reviewed: Yes - General General: Alert and oriented X 3, No acute distress, Well developed/nourished - Abdomen Abdomen: Normal bowel sounds, Soft, Non distended, No organomegaly, Other (tender left lower abd without peritoneal signs. ) Results - Vitals Vitals: Vital Signs - 24 hr 03/04/22 08:53 Temperature 36.5 C Heart Rate 54 L Respiratory 18 Rate Blood Pressure 149/48 H O2 Saturation 97 Oxygen O2 Source Room air PD MEDICAL DECISION MAKING - ED course Complexity details: considered differential (nonperitoneal abd exam. seems reasonable to empirically treat with abx for diverticulitis. however the info sheet with med is correct that med needs dose adjustment in renal insufficiency 9not that it can't be use).), d/w patient ED course: referenced epocrates to see dose adjustment for her level of renal insufficency with her last blood test 2 months ago showing gfr 29 (she states last one in [facility] was 31). this would adjust the augmentin dose down to 500/125 mg bid. she asked if she could just cut the rx tablets in half, since she already has them. this would give pretty close dose (437.5 mg ) so i thought it would be okay. Departure - Departure Disposition: 01 Home, Self Care Clinical Impression: Medication course changed Condition: Stable Record reviewed to determine appropriate education?: Yes Follow-Up: Trinity Lopez PA-C [Primary Care Provider] - Comments: You are correct in that the Augmentin dose does need adjusting for impaired re nal function. Given your level of GFR/creatinine clearance, your dosing for the Augmentin would more appropriately be 500/125 mg twice daily. Since you have the 875/125 mg medication already, it is reasonable to just cut them in half and take 1/2 tablet twice daily instead. Continue with your other usual medicines. Discharge Date/Time: 03/04/22 09:42
== END 2022-03-04 09:42 | disposition home or self-care (01) ==
LOC: ED 08:38
DX: R10.32 Left lower quadrant pain (principal); Z79.899 Other long term (current) drug therapy
CPT/HCPCS: 99281

== ENCOUNTER 2022-05-01 08:00 | Outpatient (CLI) | payer MEDICARE, OTHER | END 2022-05-01 23:59 | disposition home or self-care (01) | LOC: LAB.N 08:00 | PROVIDERS: ATTEND Nurse Practitioner | DX: N39.0 Urinary tract infection, site not specified (principal) | CPT/HCPCS: 87077; 87086; 87181 ==

== ENCOUNTER 2022-12-27 10:30 | Outpatient (CLI) | payer MEDICARE, OTHER | END 2022-12-27 10:45 | disposition home or self-care (01) | LOC: LAB.N 10:30 | PROVIDERS: ATTEND Registered Nurse | DX: R82.79 Other abnormal findings on microbiological examination of urine (principal) | CPT/HCPCS: 87086; 87181 ==

== ENCOUNTER 2023-01-01 08:00 | Outpatient (CLI) | payer MEDICARE, OTHER ==
[2023-01-01 20:36] LABS: BACTERIAL VAGINOSIS DNA NEGATIVE (NEGATIVE); CANDIDA GLABRATA DNA NEGATIVE (NEGATIVE); CANDIDA GROUP DNA NEGATIVE (NEGATIVE); CANDIDA KRUSEI DNA NEGATIVE (NEGATIVE); TRICHOMONAS VAGINALIS DNA NEGATIVE (NEGATIVE)
== END 2023-01-01 08:15 | disposition home or self-care (01) ==
LOC: LAB.N 08:00
PROVIDERS: ATTEND Physician Assistant Medical
DX: N76.0 Acute vaginitis (principal)
CPT/HCPCS: 81514